=== PATIENT | female | born 1940 | race Caucasian/White ===

== ENCOUNTER 2021-02-22 04:13 | Inpatient (IN) | payer MEDICARE, SELFPAY ==
[2021-02-22] MEDS ORDERED: cefTRIAXone\\ROCEPHIN 2 GM VIAL ONE (04:55)
[2021-02-22 05:14] LABS: Hemoglobin 13.5 g/dL (12.0-16.0); Mean Corpuscular Hemoglobin 32.4 pg (27.0-31.0); Mean Corpuscular Volume 95.5 fL (78.0-98.0); Mean Platelet Volume 7.8 fL (7.4-10.4); Platelet Count 216 thou/uL (130-400); RBC Distribution Width 11.6 % (11.5-14.5); Red Blood Cell (RBC) Count 4.15 mill/uL (4.20-5.40); White Blood Cell (WBC) Count 21.6 thou/uL (4.8-10.8)
[2021-02-22 05:21] LABS: ALT (SGPT) 13 U/L (8-55); AST (SGOT) 42 U/L (5-34); Albumin 3.3 g/dL (3.4-4.8); Alkaline Phosphatase 75 U/L (40-110); Anion Gap 15 mmol/L (10-20); BUN (Urea Nitrogen) 23 mg/dL (9.8-20.1); Bilirubin, Total 0.9 mg/dL (0.2-1.2); Calc. Creatinine Clearance 0 mL/min (70-130); Calcium 8.8 mg/dL (7.8-10.44); Carbon Dioxide 19 mmol/L (23-31); Chloride 104 mmol/L (98-107); Globulin 3.3 g/dL (2.4-3.5); Glucose 135 mg/dL (83-110); Protein, Total 6.6 g/dL (5.8-8.1); Sodium 135 mmol/L (136-145)
[2021-02-22 05:24] LABS: Band 13 % (5-11); Lymphocytes 3 % (21-51); MDiff Complete? YES; Monocytes 13 % (0-10); Neutrophil 71 % (42-75); Platelet Morphology Comment Appears Adequate; RBC Morphology Normal
[2021-02-22] MEDS ORDERED: Azithromycin 500 MG VIAL ONE (05:50)
[2021-02-22 05:53] LABS: Bacteria/HPF None Seen HPF (None Seen); Bilirubin Negative (Negative); Blood, Urine 2+ (Negative); Clarity Extra Turbid (Clear); Glucose, Urine (Dipstick) Normal (Negative); Ketone, Urine Negative (Negative); Leukocyte Negative Leu/uL (Negative); Nitrite Negative (Negative); Protein, Urine (Dipstick) 200 mg/dL (Neg-Trace); Renal Epithelial 0-3 HPF (None Seen); Specific Gravity, Urine 1.034 (1.002-1.036); Squamous Epithelial 0-3 HPF (0-3); pH, Urine 5.5 (5.0-9.0)
[2021-02-22] MEDS ORDERED: Potassium Chloride 20 MEQ TAB ONE (06:08)
[2021-02-22 06:22] LABS: SARS-CoV-2 NAA Rapid Test Not Detected (NotDetected)
[2021-02-22] MEDS ORDERED: Ondansetron ODT 8 MG TAB ONE (06:44)
[2021-02-22 08:02] LABS: Lactic Acid 1.4 mmol/L (0.5-2.2)
[2021-02-22] MEDS ORDERED: Bisacodyl 5 MG TAB PO PRN (09:24)
[2021-02-22] MEDS: Nicotine 21 MG PATCH TD SCH (12:20)
[2021-02-22] MEDS: Acetaminophen 325 MG TAB PO PRN ×2 (16:25→21:53)
[2021-02-22] MEDS: Melatonin 3 MG TAB PO PRN (21:53)
[2021-02-23] MEDS: cefTRIAXone\\ROCEPHIN 1 GM in Sodium Chloride 0.9% 100 ML IVPB SCH (04:24)
[2021-02-23 06:55] LABS: Anion Gap 13 mmol/L (10-20); BUN (Urea Nitrogen) 28 mg/dL (9.8-20.1); Calc. Creatinine Clearance 55 mL/min (70-130); Calcium 9.1 mg/dL (7.8-10.44); Carbon Dioxide 23 mmol/L (23-31); Chloride 104 mmol/L (98-107); Glucose 62 mg/dL (83-110); Sodium 136 mmol/L (136-145)
[2021-02-23 07:09] LABS: Hemoglobin 11.6 g/dL (12.0-16.0); Mean Corpuscular HGB CONC 31.1 g/dL (32.0-36.0); Mean Corpuscular Hemoglobin 30.7 pg (27.0-31.0); Mean Corpuscular Volume 98.6 fL (78.0-98.0); Mean Platelet Volume 7.5 fL (7.4-10.4); Platelet Count 235 thou/uL (130-400); RBC Distribution Width 11.7 % (11.5-14.5); Red Blood Cell (RBC) Count 3.78 mill/uL (4.20-5.40); White Blood Cell (WBC) Count 17.9 thou/uL (4.8-10.8)
[2021-02-23 08:28] LABS: Band 27 % (5-11); Lymphocytes 13 % (21-51); MDiff Complete? YES; Monocytes 5 % (0-10); Neutrophil 55 % (42-75); Platelet Morphology Comment Appears Adequate; RBC Morphology Normal
[2021-02-23] MEDS ORDERED: FLU VACC QS2021-22(65YR UP)/PF 240 MCG/0.7 ML SYRINGE IM ONE (09:00)
[2021-02-23] MEDS: Enoxaparin Sodium 40 MG/0.4 ML SYRINGE SC SCH (09:30)
[2021-02-23] MEDS: Nicotine 21 MG PATCH TD SCH (09:31)
[2021-02-23] MEDS: Azithromycin 500 MG in Sodium Chloride 0.9% 250 ML 250 ML IVPB SCH (09:32)
[2021-02-23] MEDS ORDERED: Mometasone 200 MCG/Formoterol 5 MCG 120 PUFF INHALER INH SCH (10:45)
[2021-02-23 11:33] LABS: Troponin I Less than 0.010 ng/mL (< 0.028)
[2021-02-23 11:35] LABS: Phosphorus 2.9 mg/dL (2.3-4.7)
[2021-02-23] MEDS ORDERED: predniSONE 20 MG TAB PO SCH (11:45)
[2021-02-23 12:25] LABS: Legionella Urinary Ag Negative (Negative); Strep pneumo Urine Ag NEGATIVE (NEGATIVE)
[2021-02-23] MEDS: Acetaminophen 325 MG TAB PO PRN ×3 (13:03→20:20)
[2021-02-23] MEDS ORDERED: Vancomycin 1 GM in Premix Bag 1 BAG IVPB SCH (14:00)
[2021-02-23] MEDS: Mometasone 200 MCG/Formoterol 5 MCG 120 PUFF INHALER INH SCH (19:13)
[2021-02-23] MEDS: guaiFENesin ER 600 MG TAB PO SCH (20:20)
[2021-02-23] MEDS: Amitriptyline HCl 10 MG TAB PO SCH (20:20)
[2021-02-23] MEDS: Melatonin 3 MG TAB PO PRN (20:20)
[2021-02-24] MEDS: cefTRIAXone\\ROCEPHIN 1 GM in Sodium Chloride 0.9% 100 ML IVPB SCH (04:13)
[2021-02-24] MEDS: Acetaminophen 325 MG TAB PO PRN ×2 (05:22→18:04)
[2021-02-24] MEDS: Azithromycin 500 MG in Sodium Chloride 0.9% 250 ML 250 ML IVPB SCH (06:30)
[2021-02-24] MEDS: Mometasone 200 MCG/Formoterol 5 MCG 120 PUFF INHALER INH SCH ×2 (06:54→18:54)
[2021-02-24] MEDS: guaiFENesin ER 600 MG TAB PO SCH ×2 (08:01→20:49)
[2021-02-24] MEDS: Enoxaparin Sodium 40 MG/0.4 ML SYRINGE SC SCH (08:01)
[2021-02-24] MEDS: FLUoxetine HCl 20 MG CAP PO SCH (08:01)
[2021-02-24] MEDS: predniSONE 20 MG TAB PO SCH (08:01)
[2021-02-24 08:05] LABS: Anion Gap 12 mmol/L (10-20); BUN (Urea Nitrogen) 22 mg/dL (9.8-20.1); Calc. Creatinine Clearance 58 mL/min (70-130); Carbon Dioxide 24 mmol/L (23-31); Chloride 104 mmol/L (98-107); Glucose 115 mg/dL (83-110); Magnesium 2.3 mg/dL (1.6-2.6); Phosphorus 3.3 mg/dL (2.3-4.7); Potassium 3.8 mmol/L (3.5-5.1); Sodium 136 mmol/L (136-145)
[2021-02-24] MEDS ORDERED: Saccharomyces boulardii 250 MG CAP PO SCH (09:00)
[2021-02-24 10:28] LABS: Band 13 % (5-11); Hemoglobin 11.1 g/dL (12.0-16.0); Lymphocytes 7 % (21-51); MDiff Complete? YES; Mean Corpuscular HGB CONC 31.3 g/dL (32.0-36.0); Mean Corpuscular Hemoglobin 30.6 pg (27.0-31.0); Mean Corpuscular Volume 97.6 fL (78.0-98.0); Mean Platelet Volume 8.1 fL (7.4-10.4); Monocytes 5 % (0-10); Neutrophil 74 % (42-75); Platelet Count 253 thou/uL (130-400); Platelet Morphology Comment Appears Adequate; Polychromasia SLIGHT = 2-3 cells (100X) (0-2/hpf); RBC Distribution Width 11.7 % (11.5-14.5); Red Blood Cell (RBC) Count 3.64 mill/uL (4.20-5.40); White Blood Cell (WBC) Count 15.2 thou/uL (4.8-10.8)
[2021-02-24] MEDS: Nicotine 21 MG PATCH TD SCH (11:13)
[2021-02-24] MEDS: Amitriptyline HCl 10 MG TAB PO SCH (20:50)
[2021-02-25] MEDS: cefTRIAXone\\ROCEPHIN 1 GM in Sodium Chloride 0.9% 100 ML IVPB SCH (05:30)
[2021-02-25] MEDS: Acetaminophen 325 MG TAB PO PRN ×3 (05:43→19:04)
[2021-02-25] MEDS: Azithromycin 500 MG in Sodium Chloride 0.9% 250 ML 250 ML IVPB SCH (06:32)
[2021-02-25 06:56] LABS: Hemoglobin 11.5 g/dL (12.0-16.0); Mean Corpuscular HGB CONC 31.2 g/dL (32.0-36.0); Mean Corpuscular Hemoglobin 30.6 pg (27.0-31.0); Mean Corpuscular Volume 98.1 fL (78.0-98.0); Mean Platelet Volume 8.1 fL (7.4-10.4); Platelet Count 275 thou/uL (130-400); RBC Distribution Width 11.9 % (11.5-14.5); Red Blood Cell (RBC) Count 3.76 mill/uL (4.20-5.40); White Blood Cell (WBC) Count 15.9 thou/uL (4.8-10.8)
[2021-02-25] MEDS: Mometasone 200 MCG/Formoterol 5 MCG 120 PUFF INHALER INH SCH ×2 (07:00→18:19)
[2021-02-25 07:11] LABS: Anion Gap 12 mmol/L (10-20); BUN (Urea Nitrogen) 23 mg/dL (9.8-20.1); Calc. Creatinine Clearance 72 mL/min (70-130); Calcium 8.9 mg/dL (7.8-10.44); Carbon Dioxide 24 mmol/L (23-31); Chloride 108 mmol/L (98-107); Glucose 86 mg/dL (83-110); Potassium 3.9 mmol/L (3.5-5.1); Sodium 140 mmol/L (136-145)
[2021-02-25 07:44] LABS: Band 8 % (5-11); Lymphocytes 12 % (21-51); MDiff Complete? YES; Metamyelocyte 1 % (0-0); Monocytes 6 % (0-10); Neutrophil 73 % (42-75); Platelet Morphology Comment Appears Adequate; Polychromasia SLIGHT = 2-3 cells (100X) (0-2/hpf)
[2021-02-25] MEDS: Enoxaparin Sodium 40 MG/0.4 ML SYRINGE SC SCH (08:28)
[2021-02-25] MEDS: FLUoxetine HCl 20 MG CAP PO SCH (08:28)
[2021-02-25] MEDS: Benzonatate 100 MG CAP PO PRN (08:28)
[2021-02-25] MEDS: predniSONE 20 MG TAB PO SCH (08:28)
[2021-02-25] MEDS: guaiFENesin ER 600 MG TAB PO SCH ×2 (08:28→20:27)
[2021-02-25] MEDS: Nicotine 21 MG PATCH TD SCH (11:14)
[2021-02-25] MEDS: Amitriptyline HCl 10 MG TAB PO SCH (20:26)
[2021-02-25] MEDS ORDERED: hydrALAZINE 20 MG/ML VIAL SLOW IVP PRN (20:47)
[2021-02-26] MEDS: hydrALAZINE 20 MG/ML VIAL SLOW IVP PRN (01:19)
[2021-02-26] MEDS: Acetaminophen 325 MG TAB PO PRN (03:41)
[2021-02-26] MEDS: Nitroglycerin 0.4 MG TAB (25 Tab Bottle) SL PRN ×3 (04:14→05:29)
[2021-02-26] MEDS ORDERED: Morphine 4 MG/ML VIAL SLOW IVP SCH (04:15)
[2021-02-26 05:42] LABS: Anion Gap 16 mmol/L (10-20); BUN (Urea Nitrogen) 15 mg/dL (9.8-20.1); Calc. Creatinine Clearance 64 mL/min (70-130); Calcium 9.5 mg/dL (7.8-10.44); Carbon Dioxide 26 mmol/L (23-31); Chloride 103 mmol/L (98-107); Glucose 100 mg/dL (83-110); Magnesium 1.8 mg/dL (1.6-2.6); Potassium 3.2 mmol/L (3.5-5.1); Sodium 142 mmol/L (136-145)
[2021-02-26] MEDS: cefTRIAXone\\ROCEPHIN 1 GM in Sodium Chloride 0.9% 100 ML IVPB SCH (05:42)
[2021-02-26 05:48] LABS: Mean Corpuscular HGB CONC 32.6 g/dL (32.0-36.0); Mean Corpuscular Hemoglobin 31.4 pg (27.0-31.0); Mean Corpuscular Volume 96.2 fL (78.0-98.0); Mean Platelet Volume 7.5 fL (7.4-10.4); Platelet Count 397 thou/uL (130-400); Red Blood Cell (RBC) Count 4.46 mill/uL (4.20-5.40); White Blood Cell (WBC) Count 22.1 thou/uL (4.8-10.8)
[2021-02-26 05:53] VITALS: BMI 24.6
[2021-02-26] MEDS: Azithromycin 500 MG in Sodium Chloride 0.9% 250 ML 250 ML IVPB SCH (06:19)
[2021-02-26 06:52] LABS: Band 2 % (5-11); Lymphocytes 21 % (21-51); MDiff Complete? YES; Monocytes 2 % (0-10); Neutrophil 75 % (42-75)
[2021-02-26] MEDS: Mometasone 200 MCG/Formoterol 5 MCG 120 PUFF INHALER INH SCH ×2 (07:45→18:39)
[2021-02-26 08:35] LABS: Troponin I 0.034 ng/mL (< 0.028)
[2021-02-26] MEDS ORDERED: Magnesium 2 GM/50 ML 2 GM in Premix Bag 1 BAG IVPB SCH (09:00)
[2021-02-26] MEDS: FLUoxetine HCl 20 MG CAP PO SCH (09:55)
[2021-02-26] MEDS: Potassium Chloride 20 MEQ TAB PO SCH ×2 (09:55→13:32)
[2021-02-26] MEDS: Enoxaparin Sodium 40 MG/0.4 ML SYRINGE SC SCH (09:55)
[2021-02-26] MEDS: predniSONE 20 MG TAB PO SCH (09:55)
[2021-02-26] MEDS: guaiFENesin ER 600 MG TAB PO SCH ×2 (09:55→20:15)
[2021-02-26] MEDS: Nicotine 21 MG PATCH TD SCH (09:57)
[2021-02-26] MEDS: Amitriptyline HCl 10 MG TAB PO SCH (20:15)
[2021-02-27] MEDS: hydrALAZINE 20 MG/ML VIAL SLOW IVP PRN (04:04)
[2021-02-27 04:18] LABS: Hemoglobin 11.4 g/dL (12.0-16.0); Mean Corpuscular HGB CONC 32.7 g/dL (32.0-36.0); Mean Corpuscular Hemoglobin 31.6 pg (27.0-31.0); Mean Corpuscular Volume 96.7 fL (78.0-98.0); Mean Platelet Volume 7.2 fL (7.4-10.4); Platelet Count 380 thou/uL (130-400); Red Blood Cell (RBC) Count 3.61 mill/uL (4.20-5.40); White Blood Cell (WBC) Count 17.2 thou/uL (4.8-10.8)
[2021-02-27 04:28] LABS: Anion Gap 11 mmol/L (10-20); BUN (Urea Nitrogen) 16 mg/dL (9.8-20.1); Calc. Creatinine Clearance 64 mL/min (70-130); Calcium 8.7 mg/dL (7.8-10.44); Carbon Dioxide 30 mmol/L (23-31); Chloride 102 mmol/L (98-107); Glucose 77 mg/dL (83-110); Magnesium 2.2 mg/dL (1.6-2.6); Potassium 3.7 mmol/L (3.5-5.1); Sodium 139 mmol/L (136-145)
[2021-02-27] MEDS: cefTRIAXone\\ROCEPHIN 1 GM in Sodium Chloride 0.9% 100 ML IVPB SCH (04:32)
[2021-02-27 05:07] LABS: Band 1 % (5-11); Lymphocytes 12 % (21-51); MDiff Complete? YES; Monocytes 9 % (0-10); Myelocyte 2 % (0-0); Neutrophil 76 % (42-75)
[2021-02-27] MEDS: Azithromycin 500 MG in Sodium Chloride 0.9% 250 ML 250 ML IVPB SCH (05:07)
[2021-02-27] MEDS: Mometasone 200 MCG/Formoterol 5 MCG 120 PUFF INHALER INH SCH ×2 (06:57→19:10)
[2021-02-27] MEDS: guaiFENesin ER 600 MG TAB PO SCH ×2 (09:43→21:21)
[2021-02-27] MEDS: Enoxaparin Sodium 40 MG/0.4 ML SYRINGE SC SCH (09:43)
[2021-02-27] MEDS: FLUoxetine HCl 20 MG CAP PO SCH (09:43)
[2021-02-27] MEDS: predniSONE 20 MG TAB PO SCH (09:43)
[2021-02-27] MEDS: Nicotine 21 MG PATCH TD SCH (09:46)
[2021-02-27] MEDS ORDERED: Amlodipine 5 MG TAB PO SCH (11:45)
[2021-02-27] MEDS ORDERED: Lisinopril/Hydrochlorothiazide 20 mg/12.5 mg Tablet PO SCH (11:45)
[2021-02-27] MEDS: Amitriptyline HCl 10 MG TAB PO SCH (21:21)
[2021-02-27] MEDS: Atorvastatin Calcium 40 MG TAB PO SCH (21:21)
[2021-02-27] MEDS: Benzonatate 100 MG CAP PO PRN (21:21)
[2021-02-27] MEDS: Melatonin 3 MG TAB PO PRN (21:22)
[2021-02-28] MEDS: cefTRIAXone\\ROCEPHIN 1 GM in Sodium Chloride 0.9% 100 ML IVPB SCH (04:04)
[2021-02-28] MEDS: Azithromycin 500 MG in Sodium Chloride 0.9% 250 ML 250 ML IVPB SCH (05:22)
[2021-02-28] MEDS: Mometasone 200 MCG/Formoterol 5 MCG 120 PUFF INHALER INH SCH ×2 (06:49→19:54)
[2021-02-28 07:54] LABS: Anion Gap 12 mmol/L (10-20); BUN (Urea Nitrogen) 19 mg/dL (9.8-20.1); Calc. Creatinine Clearance 59 mL/min (70-130); Calcium 8.7 mg/dL (7.8-10.44); Carbon Dioxide 29 mmol/L (23-31); Chloride 99 mmol/L (98-107); Glucose 64 mg/dL (83-110); Potassium 3.9 mmol/L (3.5-5.1); Sodium 136 mmol/L (136-145)
[2021-02-28 07:56] LABS: #Eosinphils 0.2 thou/uL (0.0-0.7); #Lymphocytes 2.9 thou/uL (1.20-3.40); #Monocytes 1.3 thou/uL (0.11-0.59); #Neutrophils 15.4 thou/uL (1.40-6.50); %Basophils 0.1 % (0.0-1.0); %Eosinophils 1.2 % (0.0-10.0); %Lymphocytes 14.7 % (21.0-51.0); %Monocytes 6.6 % (0.0-10.0); %Neutrophils 77.4 % (42.0-75.0); Hemoglobin 11.6 g/dL (12.0-16.0); Mean Corpuscular HGB CONC 31.6 g/dL (32.0-36.0); Mean Corpuscular Hemoglobin 30.6 pg (27.0-31.0); Mean Corpuscular Volume 96.6 fL (78.0-98.0); Mean Platelet Volume 7.3 fL (7.4-10.4); Platelet Count 423 thou/uL (130-400); RBC Distribution Width 12.3 % (11.5-14.5); White Blood Cell (WBC) Count 19.8 thou/uL (4.8-10.8)
[2021-02-28] MEDS: Enoxaparin Sodium 40 MG/0.4 ML SYRINGE SC SCH (07:59)
[2021-02-28] MEDS: guaiFENesin ER 600 MG TAB PO SCH ×2 (07:59→20:22)
[2021-02-28] MEDS: predniSONE 20 MG TAB PO SCH (07:59)
[2021-02-28] MEDS: Amlodipine 5 MG TAB PO SCH (07:59)
[2021-02-28] MEDS: FLUoxetine HCl 20 MG CAP PO SCH (07:59)
[2021-02-28] MEDS: Lisinopril/Hydrochlorothiazide 20 mg/12.5 mg Tablet PO SCH (07:59)
[2021-02-28] MEDS: Nicotine 21 MG PATCH TD SCH (10:39)
[2021-02-28] MEDS: Sodium Chloride 0.65% Nasal 44 ML BOT EA NARE SCH ×2 (17:02→20:21)
[2021-02-28] MEDS: Amitriptyline HCl 10 MG TAB PO SCH (20:21)
[2021-02-28] MEDS: Benzonatate 100 MG CAP PO PRN (20:22)
[2021-02-28] MEDS: Atorvastatin Calcium 40 MG TAB PO SCH (20:22)
[2021-02-28] MEDS: Melatonin 3 MG TAB PO PRN (20:22)
[2021-03-01] MEDS: cefTRIAXone\\ROCEPHIN 1 GM in Sodium Chloride 0.9% 100 ML IVPB SCH (04:55)
[2021-03-01] MEDS: Azithromycin 500 MG in Sodium Chloride 0.9% 250 ML 250 ML IVPB SCH (05:25)
[2021-03-01 06:53] LABS: Mean Corpuscular HGB CONC 32.5 g/dL (32.0-36.0); Mean Corpuscular Hemoglobin 31.7 pg (27.0-31.0); Mean Corpuscular Volume 97.5 fL (78.0-98.0); Mean Platelet Volume 6.9 fL (7.4-10.4); Platelet Count 406 thou/uL (130-400); RBC Distribution Width 12.3 % (11.5-14.5); Red Blood Cell (RBC) Count 3.48 mill/uL (4.20-5.40); White Blood Cell (WBC) Count 19.8 thou/uL (4.8-10.8)
[2021-03-01 06:56] LABS: Anion Gap 12 mmol/L (10-20); BUN (Urea Nitrogen) 21 mg/dL (9.8-20.1); Calc. Creatinine Clearance 57 mL/min (70-130); Calcium 8.5 mg/dL (7.8-10.44); Carbon Dioxide 26 mmol/L (23-31); Chloride 102 mmol/L (98-107); Glucose 78 mg/dL (83-110); Potassium 3.5 mmol/L (3.5-5.1); Sodium 136 mmol/L (136-145)
[2021-03-01] MEDS: Mometasone 200 MCG/Formoterol 5 MCG 120 PUFF INHALER INH SCH (07:28)
[2021-03-01] MEDS: Enoxaparin Sodium 40 MG/0.4 ML SYRINGE SC SCH (07:57)
[2021-03-01] MEDS: Sodium Chloride 0.65% Nasal 44 ML BOT EA NARE SCH (07:58)
[2021-03-01] MEDS: FLUoxetine HCl 20 MG CAP PO SCH (07:58)
[2021-03-01] MEDS: predniSONE 20 MG TAB PO SCH (07:58)
[2021-03-01] MEDS: Amlodipine 5 MG TAB PO SCH (07:58)
[2021-03-01] MEDS: guaiFENesin ER 600 MG TAB PO SCH (07:58)
[2021-03-01] MEDS ORDERED: Potassium Chloride 20 MEQ TAB PO SCH (08:15)
[2021-03-01 08:26] VITALS: BP 146/75; TEMP 97.8
[2021-03-01 08:54] LABS: Band 2 % (5-11); Eosinophils 1 % (0-10); Lymphocytes 13 % (21-51); MDiff Complete? YES; Metamyelocyte 1 % (0-0); Monocytes 2 % (0-10); Myelocyte 1 % (0-0); Neutrophil 76 % (42-75); Platelet Morphology Comment Appears Increased; Polychromasia SLIGHT = 2-3 cells (100X) (0-2/hpf); Reactive Lymphocytes 4 % (0-10); Vacuoles SLIGHT
[2021-03-01] MEDS: Lisinopril/Hydrochlorothiazide 20 mg/12.5 mg Tablet PO SCH (09:02)
[2021-03-01] MEDS: Nicotine 21 MG PATCH TD SCH (10:46)
== END 2021-03-01 14:54 | DRG 871 ==
LOC: ERS 04:13 → ERHOLD 06:02 → T4-A 06:08 → OBSVTOIN 02-23 08:42 → IMCU/EMU 02-26 04:58 → T4-A 02-27 15:30
PROVIDERS: ADMIT Internal Medicine; ATTEND Internal Medicine
DX: A41.50 Gram-negative sepsis, unspecified (principal); J96.01 Acute respiratory failure with hypoxia; J15.6 Pneumonia due to other Gram-negative bacteria; J44.0 Chronic obstructive pulmonary disease with (acute) lower respiratory infection; J44.1 Chronic obstructive pulmonary disease with (acute) exacerbation; E87.1 Hypo-osmolality and hyponatremia; K52.1 Toxic gastroenteritis and colitis; Z66 Do not resuscitate; Z20.822 Contact with and (suspected) exposure to COVID-19; R65.20 Severe sepsis without septic shock; F17.210 Nicotine dependence, cigarettes, uncomplicated; E87.6 Hypokalemia; N18.2 Chronic kidney disease, stage 2 (mild); I12.9 Hypertensive chronic kidney disease with stage 1 through stage 4 chronic kidney disease, or unspecified chronic kidney disease; F41.9 Anxiety disorder, unspecified; T36.95XA Adverse effect of unspecified systemic antibiotic, initial encounter; Z88.0 Allergy status to penicillin; Z90.710 Acquired absence of both cervix and uterus; Z79.899 Other long term (current) drug therapy
CPT/HCPCS: 0240U; 36415; 36416; 51701; 71045; 80048; 80053; 81003; 81015; 83605; 83735; 83880; 84100; 84484; 85025; 87040; 87086; 87149; 87449; 87899; 93005; 93010; 94660; 96365; 96367; 96376; G0378; J0360; J0456; J0696; J1650; J2270; J3370; J3475; J3490; J7050; J7512; J7620; Q0162

== ENCOUNTER 2023-02-08 12:33 | Inpatient (IN) | payer MEDICARE, BC ==
[2023-02-08] MEDS ORDERED: Magnesium 2 GM/50 ML BAG (IN WATER) ONE (12:52)
[2023-02-08] MEDS ORDERED: Dexamethasone 10 MG/ML VIAL ONE (12:52)
[2023-02-08] MEDS ORDERED: LORazepam 2 MG/ML SYR.(CARPUJECT) ONE (12:52)
[2023-02-08 13:04] LABS: Actual Bicarbonate (HCO3a) 27.2 mEq/L (22-28); Analyzer IN Cardio ER; Base Excess (BEa) 1.6 mEq/L (-2.0 to +3.0); Calcium, Ionized (arterial) 1.23 mmol/L (1.12-1.30); Carboxyhemoglobin (COHb) 2.7 gm% (0.0-3.0); Hematocrit-ABG 35 % (36.0-47.0); Hemoglobin (Hb) 11.8 g/dL (12.0-16.0); O2 Tension (PaO2), arterial 90.5 mmHg (> 60.0); Potassium - ABG Lab 3.56 mmol/L (3.70-5.30)
[2023-02-08 13:06] LABS: Puncture Site RRA
[2023-02-08] MEDS ORDERED: Albuterol 2.5 MG/0.5 ML NEB ONE ×2 (13:15→13:16)
[2023-02-08] MEDS ORDERED: Ipratropium/Albuterol 3 ML NEB ONE (13:16)
[2023-02-08 13:21] LABS: #Basophils 0.1 thou/uL (0.0-0.2); #Monocytes 1.5 thou/uL (0.11-0.59); #Neutrophils 16.3 thou/uL (1.40-6.50); %Basophils 0.2 % (0.0-1.0); %Lymphocytes 16.1 % (21.0-51.0); %Monocytes 6.9 % (0.0-10.0); %Neutrophils 76.1 % (42.0-75.0); Hematocrit 36.1 % (36.0-47.0); Hemoglobin 11.1 g/dL (12.0-16.0); Mean Corpuscular HGB CONC 30.7 g/dL (32.0-36.0); Mean Corpuscular Hemoglobin 29.2 pg (27.0-31.0); Mean Platelet Volume 8.9 fL (7.4-10.4); Platelet Count 523 10x3/uL (130-400); RBC Distribution Width 15.6 % (11.5-14.5); White Blood Cell (WBC) Count 21.4 10x3/uL (4.8-10.8)
[2023-02-08 13:43] LABS: ALT (SGPT) 11 U/L (8-55); AST (SGOT) 15 U/L (5-34); Albumin 3.7 g/dL (3.4-4.8); Alkaline Phosphatase 101 U/L (40-110); Anion Gap 16 mmol/L (10-20); BUN (Urea Nitrogen) 11 mg/dL (9.8-20.1); Bilirubin, Total 0.4 mg/dL (0.2-1.2); Calc. Creatinine Clearance 0 mL/min (70-130); Calcium 9.9 mg/dL (7.8-10.44); Carbon Dioxide 25 mmol/L (23-31); Chloride 99 mmol/L (98-107); Estimated GFR 86; Globulin 3.5 g/dL (2.4-3.5); Glucose 139 mg/dL (83-110); Lipase 8 U/L (8-78); Potassium 3.7 mmol/L (3.5-5.1); Protein, Total 7.2 g/dL (5.8-8.1); Sodium 136 mmol/L (136-145)
[2023-02-08] MEDS ORDERED: Vancomycin 1 GM/200 ML (FROZEN) BAG ONE (13:49)
[2023-02-08 13:51] LABS: Troponin I 0.464 ng/mL (< 0.028)
[2023-02-08 13:56] LABS: SARS-CoV-2 NAA Rapid Test Not Detected (NotDetected)
[2023-02-08] MEDS ORDERED: Aspirin Chewable 81 MG TAB ONE (14:06)
[2023-02-08] MEDS ORDERED: LevoFLOXacin 750 mg/D5W 150 ml Premix Bag ONE (14:26)
[2023-02-08] MEDS ORDERED: Ondansetron ODT 4 MG TAB PO PRN (15:28)
[2023-02-08] MEDS ORDERED: Bisacodyl 5 MG TAB PO PRN (15:28)
[2023-02-08] MEDS ORDERED: Ipratropium/Albuterol 3 ML NEB EZPAP PRN (15:53)
[2023-02-08 17:13] LABS: Lactic Acid 1.8 mmol/L (0.5-2.2)
[2023-02-08 17:32] LABS: Troponin I 0.361 ng/mL (< 0.028)
[2023-02-08 18:06] VITALS: BMI 21.0
[2023-02-08] MEDS: methylPREDNISolone Sod Succ 40 MG VIAL IVP SCH (18:15)
[2023-02-08] MEDS ORDERED: Mirtazapine 15 MG TAB PO PRN (20:59)
[2023-02-08] MEDS ORDERED: Ipratropium/Albuterol 3 ML NEB NEB PRN (21:23)
[2023-02-08] MEDS: Cefepime 2 GM in Sodium Chloride 0.9% 100 ML IVPB SCH (21:43)
[2023-02-08] MEDS: Nicotine 14 MG PATCH TD SCH (21:44)
[2023-02-08] MEDS: Amitriptyline HCl 10 MG TAB PO SCH (21:44)
[2023-02-08] MEDS: Ipratropium/Albuterol 3 ML NEB NEB SCH (22:33)
[2023-02-09] MEDS: methylPREDNISolone Sod Succ 40 MG VIAL IVP SCH ×3 (00:36→20:53)
[2023-02-09] MEDS: Ipratropium/Albuterol 3 ML NEB NEB SCH ×6 (01:48→22:36)
[2023-02-09] MEDS ORDERED: Metoprolol Tartrate 5 MG/5 ML VIAL IVP SCH (02:45)
[2023-02-09 04:50] LABS: #Monocytes 0.3 thou/uL (0.11-0.59); #Neutrophils 12.9 thou/uL (1.40-6.50); %Basophils 0.1 % (0.0-1.0); %Lymphocytes 4.3 % (21.0-51.0); Hematocrit 28.8 % (36.0-47.0); Hemoglobin 8.9 g/dL (12.0-16.0); Mean Corpuscular HGB CONC 30.9 g/dL (32.0-36.0); Mean Corpuscular Hemoglobin 29.5 pg (27.0-31.0); Mean Corpuscular Volume 95.4 fl (78.0-98.0); Mean Platelet Volume 9.1 fL (7.4-10.4); RBC Distribution Width 15.3 % (11.5-14.5); Red Blood Cell (RBC) Count 3.02 mill/uL (4.20-5.40); White Blood Cell (WBC) Count 13.8 10x3/uL (4.8-10.8)
[2023-02-09 05:16] LABS: Phosphorus 3.4 mg/dL (2.3-4.7)
[2023-02-09 05:19] LABS: ALT (SGPT) 13 U/L (8-55); AST (SGOT) 18 U/L (5-34); Alkaline Phosphatase 83 U/L (40-110); Anion Gap 12 mmol/L (10-20); BUN (Urea Nitrogen) 11 mg/dL (9.8-20.1); Bilirubin, Total 0.2 mg/dL (0.2-1.2); Calc. Creatinine Clearance 52 mL/min (70-130); Calcium 9.6 mg/dL (7.8-10.44); Carbon Dioxide 26 mmol/L (23-31); Chloride 104 mmol/L (98-107); Estimated GFR 87; Glucose 165 mg/dL (83-110); Magnesium 2.1 mg/dL (1.6-2.6); Potassium 3.6 mmol/L (3.5-5.1); Sodium 138 mmol/L (136-145)
[2023-02-09 05:35] LABS: Platelet Count 343 10x3/uL (130-400)
[2023-02-09] MEDS: Mometasone 100 MCG HFA INHALER (RT USE) INH SCH ×2 (07:19→18:57)
[2023-02-09] MEDS: Cefepime 2 GM in Sodium Chloride 0.9% 100 ML IVPB SCH (07:52)
[2023-02-09] MEDS: Atorvastatin Calcium 40 MG TAB PO SCH (07:53)
[2023-02-09] MEDS: Famotidine 20 MG TAB PO SCH ×2 (07:53→20:53)
[2023-02-09] MEDS ORDERED: Amlodipine 5 MG TAB PO SCH (09:00)
[2023-02-09] MEDS ORDERED: methylPREDNISolone Sod Succ 40 MG VIAL IVP SCH ×4 (10:31→21:00)
[2023-02-09] MEDS ORDERED: FLUoxetine HCl 20 MG CAP PO SCH (12:30)
[2023-02-09] MEDS ORDERED: Verapamil 80 MG TAB PO SCH (17:45)
[2023-02-09] MEDS: cefTRIAXone\\ROCEPHIN 1 GM in Sodium Chloride 0.9% 100 ML IVPB SCH (17:59)
[2023-02-09] MEDS: Amitriptyline HCl 10 MG TAB PO SCH (20:53)
[2023-02-09] MEDS: Nicotine 14 MG PATCH TD SCH (20:54)
[2023-02-10] MEDS: Ipratropium/Albuterol 3 ML NEB NEB SCH ×6 (02:23→22:48)
[2023-02-10 04:59] LABS: Hematocrit 31.9 % (36.0-47.0); Hemoglobin 9.7 g/dL (12.0-16.0); Mean Corpuscular HGB CONC 30.4 g/dL (32.0-36.0); Mean Corpuscular Hemoglobin 29.5 pg (27.0-31.0); Mean Platelet Volume 9.4 fL (7.4-10.4); Platelet Count 374 10x3/uL (130-400); RBC Distribution Width 15.5 % (11.5-14.5); Red Blood Cell (RBC) Count 3.29 mill/uL (4.20-5.40); White Blood Cell (WBC) Count 27.5 10x3/uL (4.8-10.8)
[2023-02-10 05:17] LABS: Delete Auto Diff?? YES; Manual Diff?? YES
[2023-02-10 05:24] LABS: Anion Gap 15 mmol/L (10-20); BUN (Urea Nitrogen) 18 mg/dL (9.8-20.1); Calc. Creatinine Clearance 51 mL/min (70-130); Calcium 10.2 mg/dL (7.8-10.44); Carbon Dioxide 27 mmol/L (23-31); Chloride 104 mmol/L (98-107); Estimated GFR 86; Glucose 138 mg/dL (83-110); Potassium 3.8 mmol/L (3.5-5.1); Sodium 142 mmol/L (136-145)
[2023-02-10 05:50] LABS: CellaVision Operator ID lab.abc; Monocytes 2 % (0-10); Neutrophil 98 % (42-75); Platelet Adequacy Comment Platelets Normal; Polychromasia SLIGHT = 2-3 cells HPF (0-2); RBC Morphology Within Normal Limits; Total Cell Count 100
[2023-02-10] MEDS: Mometasone 100 MCG HFA INHALER (RT USE) INH SCH ×2 (07:31→19:05)
[2023-02-10] MEDS: Hydrochlorothiazide 25 MG TAB PO SCH (08:28)
[2023-02-10] MEDS: Clopidogrel Bisulfate 75 MG TAB PO SCH (08:28)
[2023-02-10] MEDS: methylPREDNISolone Sod Succ 40 MG VIAL IVP SCH ×2 (08:28→21:44)
[2023-02-10] MEDS: Lisinopril 20 MG TAB PO SCH (08:28)
[2023-02-10] MEDS: FLUoxetine HCl 20 MG CAP PO SCH (08:28)
[2023-02-10] MEDS: Azithromycin 250 MG TAB PO SCH (08:28)
[2023-02-10] MEDS: Verapamil 80 MG TAB PO SCH ×3 (08:29→21:43)
[2023-02-10] MEDS: Famotidine 20 MG TAB PO SCH ×2 (08:29→21:43)
[2023-02-10] MEDS: Atorvastatin Calcium 40 MG TAB PO SCH (08:29)
[2023-02-10] MEDS ORDERED: Non-Formulary Item 1 EACH (Fluoxetine Hcl [Fluoxetine Hcl] 20 MG Tablet) PO SCH (09:00)
[2023-02-10] MEDS ORDERED: Non-Formulary Item 1 EACH (Lisinopril/Hydrochlorothiazide [Lisinopril-Hctz 20-12.5 Mg Tab PO SCH (09:00)
[2023-02-10] MEDS ORDERED: Furosemide 20 MG/2 ML VIAL SLOW IVP SCH (13:00)
[2023-02-10] MEDS: cefTRIAXone\\ROCEPHIN 1 GM in Sodium Chloride 0.9% 100 ML IVPB SCH (17:42)
[2023-02-10] MEDS ORDERED: dilTIAZem 125 MG in Sodium Chloride 0.9% 100 ML IVPB SCH (18:45)
[2023-02-10] MEDS ORDERED: dilTIAZem 125 MG, Admixture Fee 1 EACH in Sodium Chloride 0.9% 100 ML IVPB PRN (19:40)
[2023-02-10] MEDS ORDERED: dilTIAZem 25 MG/5 ML VIAL SLOW IVP PRN (19:42)
[2023-02-10] MEDS: Amitriptyline HCl 10 MG TAB PO SCH (21:43)
[2023-02-10] MEDS: Nicotine 14 MG PATCH TD SCH (21:44)
[2023-02-11] MEDS: Ipratropium/Albuterol 3 ML NEB NEB SCH ×5 (02:41→18:51)
[2023-02-11 04:39] LABS: #Monocytes 0.7 thou/uL (0.11-0.59); #Neutrophils 21.5 thou/uL (1.40-6.50); %Basophils 0.1 % (0.0-1.0); %Lymphocytes 2.7 % (21.0-51.0); %Neutrophils 92.7 % (42.0-75.0); Hematocrit 30.5 % (36.0-47.0); Hemoglobin 9.2 g/dL (12.0-16.0); Mean Corpuscular HGB CONC 30.2 g/dL (32.0-36.0); Mean Corpuscular Hemoglobin 29.4 pg (27.0-31.0); Mean Corpuscular Volume 97.4 fl (78.0-98.0); Mean Platelet Volume 9.4 fL (7.4-10.4); Platelet Count 380 10x3/uL (130-400); RBC Distribution Width 15.8 % (11.5-14.5); Red Blood Cell (RBC) Count 3.13 mill/uL (4.20-5.40); White Blood Cell (WBC) Count 23.2 10x3/uL (4.8-10.8)
[2023-02-11 05:02] LABS: Anion Gap 13 mmol/L (10-20); BUN (Urea Nitrogen) 19 mg/dL (9.8-20.1); Calc. Creatinine Clearance 46 mL/min (70-130); Calcium 9.7 mg/dL (7.8-10.44); Carbon Dioxide 34 mmol/L (23-31); Chloride 97 mmol/L (98-107); Estimated GFR 82; Glucose 124 mg/dL (83-110); Potassium 3.7 mmol/L (3.5-5.1); Sodium 140 mmol/L (136-145)
[2023-02-11] MEDS ORDERED: dilTIAZem 25 MG/5 ML VIAL SLOW IVP PRN (05:56)
[2023-02-11] MEDS: Mometasone 100 MCG HFA INHALER (RT USE) INH SCH ×2 (07:08→18:52)
[2023-02-11] MEDS: Famotidine 20 MG TAB PO SCH ×2 (09:08→21:55)
[2023-02-11] MEDS: Atorvastatin Calcium 40 MG TAB PO SCH (09:08)
[2023-02-11] MEDS: Azithromycin 250 MG TAB PO SCH (09:08)
[2023-02-11] MEDS: predniSONE 20 MG TAB PO SCH (09:08)
[2023-02-11] MEDS: Hydrochlorothiazide 25 MG TAB PO SCH (09:08)
[2023-02-11] MEDS: FLUoxetine HCl 20 MG CAP PO SCH (09:08)
[2023-02-11] MEDS: Lisinopril 20 MG TAB PO SCH (09:09)
[2023-02-11] MEDS: Clopidogrel Bisulfate 75 MG TAB PO SCH (09:09)
[2023-02-11] MEDS: Verapamil 80 MG TAB PO SCH ×3 (09:13→21:55)
[2023-02-11] MEDS ORDERED: Furosemide 20 MG TAB PO SCH (12:20)
[2023-02-11] MEDS: cefTRIAXone\\ROCEPHIN 1 GM in Sodium Chloride 0.9% 100 ML IVPB SCH (17:15)
[2023-02-11] MEDS: Amitriptyline HCl 10 MG TAB PO SCH (21:55)
[2023-02-11] MEDS: Nicotine 14 MG PATCH TD SCH (21:56)
[2023-02-12] MEDS: Ipratropium/Albuterol 3 ML NEB NEB SCH ×4 (00:19→19:12)
[2023-02-12 05:40] LABS: #Monocytes 1.6 thou/uL (0.11-0.59); #Neutrophils 19.8 thou/uL (1.40-6.50); %Basophils 0.1 % (0.0-1.0); %Lymphocytes 5.7 % (21.0-51.0); %Monocytes 6.8 % (0.0-10.0); %Neutrophils 86.2 % (42.0-75.0); Hemoglobin 9.6 g/dL (12.0-16.0); Mean Corpuscular Hemoglobin 29.4 pg (27.0-31.0); Mean Corpuscular Volume 95.1 fl (78.0-98.0); Mean Platelet Volume 9.6 fL (7.4-10.4); Platelet Count 349 10x3/uL (130-400); RBC Distribution Width 15.6 % (11.5-14.5); Red Blood Cell (RBC) Count 3.26 mill/uL (4.20-5.40)
[2023-02-12 07:21] LABS: Anion Gap 17 mmol/L (10-20); BUN (Urea Nitrogen) 17 mg/dL (9.8-20.1); Calc. Creatinine Clearance 55 mL/min (70-130); Calcium 9.5 mg/dL (7.8-10.44); Carbon Dioxide 33 mmol/L (23-31); Chloride 92 mmol/L (98-107); Estimated GFR 88; Glucose 83 mg/dL (83-110); Potassium 3.1 mmol/L (3.5-5.1); Sodium 139 mmol/L (136-145)
[2023-02-12] MEDS ORDERED: Potassium Bicarbonate/Cit Ac 20 MEQ TAB PO SCH (09:15)
[2023-02-12] MEDS: Furosemide 20 MG TAB PO SCH (09:29)
[2023-02-12] MEDS: Hydrochlorothiazide 25 MG TAB PO SCH (09:29)
[2023-02-12] MEDS: Famotidine 20 MG TAB PO SCH ×2 (09:29→21:45)
[2023-02-12] MEDS: FLUoxetine HCl 20 MG CAP PO SCH (09:29)
[2023-02-12] MEDS: Clopidogrel Bisulfate 75 MG TAB PO SCH (09:29)
[2023-02-12] MEDS: Lisinopril 20 MG TAB PO SCH (09:30)
[2023-02-12] MEDS: Atorvastatin Calcium 40 MG TAB PO SCH (09:30)
[2023-02-12] MEDS: predniSONE 20 MG TAB PO SCH (09:30)
[2023-02-12] MEDS: Azithromycin 250 MG TAB PO SCH (09:30)
[2023-02-12] MEDS: Verapamil 80 MG TAB PO SCH ×3 (09:30→21:45)
[2023-02-12] MEDS: Mometasone 100 MCG HFA INHALER (RT USE) INH SCH ×2 (10:01→19:12)
[2023-02-12] MEDS: cefTRIAXone\\ROCEPHIN 1 GM in Sodium Chloride 0.9% 100 ML IVPB SCH (17:14)
[2023-02-12] MEDS: Nicotine 14 MG PATCH TD SCH (21:45)
[2023-02-12] MEDS: Amitriptyline HCl 10 MG TAB PO SCH (21:45)
[2023-02-13] MEDS: Ipratropium/Albuterol 3 ML NEB NEB SCH ×3 (00:37→13:41)
[2023-02-13 04:34] LABS: #Monocytes 2.2 thou/uL (0.11-0.59); #Neutrophils 19.9 thou/uL (1.40-6.50); %Basophils 0.2 % (0.0-1.0); %Lymphocytes 7.1 % (21.0-51.0); %Neutrophils 82.9 % (42.0-75.0); Hemoglobin 9.7 g/dL (12.0-16.0); Mean Corpuscular HGB CONC 31.3 g/dL (32.0-36.0); Mean Corpuscular Hemoglobin 29.1 pg (27.0-31.0); Mean Corpuscular Volume 93.1 fl (78.0-98.0); Mean Platelet Volume 9.6 fL (7.4-10.4); Platelet Count 336 10x3/uL (130-400); RBC Distribution Width 15.7 % (11.5-14.5); Red Blood Cell (RBC) Count 3.33 mill/uL (4.20-5.40)
[2023-02-13 05:06] LABS: BUN (Urea Nitrogen) 18 mg/dL (9.8-20.1); Calc. Creatinine Clearance 53 mL/min (70-130); Calcium 9.2 mg/dL (7.8-10.44); Estimated GFR 87; Glucose 88 mg/dL (83-110)
[2023-02-13 05:15] LABS: Anion Gap 18 mmol/L (10-20); Carbon Dioxide 38 mmol/L (23-31); Chloride 87 mmol/L (98-107); Potassium 3.6 mmol/L (3.5-5.1); Sodium 139 mmol/L (136-145)
[2023-02-13] MEDS: Mometasone 100 MCG HFA INHALER (RT USE) INH SCH (08:15)
[2023-02-13] MEDS: Verapamil 80 MG TAB PO SCH ×2 (08:30→14:28)
[2023-02-13] MEDS: Famotidine 20 MG TAB PO SCH (08:31)
[2023-02-13] MEDS: predniSONE 20 MG TAB PO SCH (08:31)
[2023-02-13] MEDS: Furosemide 20 MG TAB PO SCH (08:31)
[2023-02-13] MEDS: Clopidogrel Bisulfate 75 MG TAB PO SCH (08:31)
[2023-02-13] MEDS: Hydrochlorothiazide 25 MG TAB PO SCH (08:31)
[2023-02-13] MEDS: Atorvastatin Calcium 40 MG TAB PO SCH (08:31)
[2023-02-13] MEDS: FLUoxetine HCl 20 MG CAP PO SCH (08:31)
[2023-02-13] MEDS: Lisinopril 20 MG TAB PO SCH (08:31)
[2023-02-13 11:27] VITALS: BP 111/53; TEMP 98.3
[2023-02-13] MEDS ORDERED: cefTRIAXone\\ROCEPHIN 1 GM in Sodium Chloride 0.9% 100 ML IVPB SCH (14:00)
== END 2023-02-13 15:15 | disposition home or self-care (01) | DRG 871 ==
LOC: ERS 12:33 → ERHOLD 14:36 → IMCU/EMU 17:42 → 2NO 02-09 15:31
PROVIDERS: ADMIT Internal Medicine; ATTEND Hospitalist
PROC: 4A133R1 Monitoring of Arterial Saturation, Peripheral, Percutaneous Approach (ICD-10-PCS; principal; 2023-02-08)
PROC: 5A09357 Assistance with Respiratory Ventilation, Less than 24 Consecutive Hours, Continuous Positive Airway Pressure (ICD-10-PCS; 2023-02-08)
DX: A41.9 Sepsis, unspecified organism (principal); J18.9 Pneumonia, unspecified organism; J96.21 Acute and chronic respiratory failure with hypoxia; J44.1 Chronic obstructive pulmonary disease with (acute) exacerbation; E44.0 Moderate protein-calorie malnutrition; I48.91 Unspecified atrial fibrillation; R65.20 Severe sepsis without septic shock; F17.210 Nicotine dependence, cigarettes, uncomplicated; Z66 Do not resuscitate; R53.81 Other malaise; Z88.5 Allergy status to narcotic agent; Z68.21 Body mass index [BMI] 21.0-21.9, adult; Z88.0 Allergy status to penicillin; Z79.51 Long term (current) use of inhaled steroids; Z79.899 Other long term (current) drug therapy; Z82.49 Family history of ischemic heart disease and other diseases of the circulatory system; Z11.52 Encounter for screening for COVID-19
CPT/HCPCS: 36415; 36600; 71045; 80048; 80053; 82805; 83605; 83690; 83735; 83880; 84100; 84145; 84484; 85025; 87040; 87070; 87205; 93005; 93010; 93306; 94640; 94660; J0692; J0696; J1100; J1650; J1940; J1956; J2060; J2920; J3370-JW; J3475; J3490; J7512; J7611; J7620